=== PATIENT | female | born 1980 | race Caucasian/White ===

== ENCOUNTER 2017-07-03 08:05 | Day surgery (SDC) | payer OTHER ==
[2017-07-02 11:11] VITALS: BMI 38.4
--- NOTE | 2017-07-02 22:00 | HP ---
DATE OF ADMISSION: 07/03/2017 HISTORY OF PRESENT ILLNESS: This is a 36-year-old female referred to me for evaluation of chronic ac id reflux and also lower abdominal pain. The patient has history of chronic acid reflux for several years. The symptoms had been most recently. The patient complains of abdominal pain off and on. Th e pain is cramping in nature and across the lower abdomen. The symptoms have been chronic in nature. The patient has history of Crohn's disease in the family and her younger sister has Crohn's disease . The patient comes for EGD, because of chronic acid reflux and for colonoscopy because of intermitt ent abdominal pain. ALLERGIES: None. SOCIAL HISTORY: The patient does not smoke or drink alcohol. MEDICAL ILLNESSES: 1. Obesity. 2. Type 2 diabetes. 3. Hypothyroidism. 4. History of chronic acid reflux. PHYSICAL EXAMINATION: VITAL SIGNS: Pulse is 70, blood pressure 130/80. HEENT: Conjunctivae clear. CARDIOVASCULAR: First and second heart sounds normal. LUNGS: Clear to auscultation. ABDOMEN: Soft to palpate. Abdomen is tender across the lower abdomen. There is no rebound or guard ing. No organomegaly or masses. ADMITTING DIAGNOSES: 1. Chronic acid reflux. 2. Intermittent lower abdominal pain with family history of Crohn's disease. PLAN: EGD and colonoscopy.
--- NOTE | 2017-07-03 11:20 | OP ---
DATE OF PROCEDURE: 07/03/2017 SURGEON: Amena Wayne M.D. OPERATIVE PROCEDURE: Esophagogastroduodenoscopy with biopsy. PREOPERATIVE DIAGNOSES: A 36-year-old female with chronic acid reflux, undergoing esophagogastroduod enoscopy. POSTOPERATIVE DIAGNOSES: 1. Normal esophageal mucosa. 2. Gastritis of gastric body and antrum. 3. Normal duodenum. PROCEDURE IN DETAIL: The patient was placed on her left lateral position and was given sedation by A nesthesia Department. A Pentax video gastroscope under direct vision was passed into the oropharynx to the GE junction, into the stomach and subsequently into descending duodenum. The vocal cords appe ared healthy. Although the patient complains of chronic acid reflux, at endoscopy the mucosa appeare d completely normal. No esophagitis seen. The GE junction, no pathology seen. Retroflexion failed to show any lesions in the fundus, cardia. The gastric body and gastric antrum showed gastritis. Bi opsy of the gastric antrum and gastric body. The duodenal bulb, descending duodenum, no pathology. The stomach was decompressed and the scope removed. DISCHARGE PLANNING: A 36-year-old female who came for EGD and a colonoscopy with chronic acid reflux , abdominal pain. The EGD showed antral gastritis. The colonoscopy was completely normal. DISCHARGE RECOMMENDATIONS: 1. The patient to receive all the medicines as before. 2. The patient advised about dietary and lifestyle modifications for uncontrolled reflux. 3. The patient advised to lose some weight for control of reflux. 4. She is advised to call me if she develops abdominal pain or hematochezia. 5. In the absence of any of her symptoms I will see her back in my office in 3 weeks.
--- NOTE | 2017-07-03 12:34 | OP ---
DATE OF PROCEDURE: 07/03/2017 OPERATIVE PROCEDURE: Ileal colonoscopy. PREOPERATIVE DIAGNOSIS: A 36-year-old comes here with abdominal pain which has been chronic in nature. The pain is intermittent and across lower abdomen. The patient has family history of Crohn's disease. The patient underwent colonoscopy. POSTOPERATIVE DIAGNOSIS: Normal ileal colonoscopy. PROCEDURE IN DETAIL: The patient was placed on her left lateral position and given sedation by Anesthesia Department. A rectal exam was done before the scope was advanced into the rectum. No lesion felt on rectal exam. A Pentax video colonoscope was introduced into the rectum and advanced to the cecum. The mucosa appears normal throughout the colon with normal vascular pattern. The patient had some diffuse fecal coating the mucosa. Water was used to wash out. The underlying mucosa appears actually normal. The appendical opening, ileocecal valve, cecum, no pathology. The scope advanced to the ileum about 20 cm from the ileocecal valve. The ileal mucosa appeared normal. Withdrawal of scope in the ileum and the ascending colon, hepatic flexure, and transverse colon, no pathology seen. The splenic flexure, descending colon, sigmoid colon , and rectum no lesions seen. MTDD
== END 2017-07-03 11:40 | disposition home or self-care (01) ==
LOC: SDC 08:05
PROVIDERS: ATTEND Internal Medicine Gastroenterology
PROC: 0DB68ZX Excision of Stomach, Via Natural or Artificial Opening Endoscopic, Diagnostic (ICD-10-PCS; principal; 2017-07-03)
PROC: 0DJD8ZZ Inspection of Lower Intestinal Tract, Via Natural or Artificial Opening Endoscopic (ICD-10-PCS; principal; 2017-07-03)
DX: R10.30 Lower abdominal pain, unspecified (principal); K21.9 Gastro-esophageal reflux disease without esophagitis; K29.50 Unspecified chronic gastritis without bleeding; E66.9 Obesity, unspecified; E11.9 Type 2 diabetes mellitus without complications; E03.9 Hypothyroidism, unspecified; Z79.84 Long term (current) use of oral hypoglycemic drugs; Z79.3 Long term (current) use of hormonal contraceptives; Z79.899 Other long term (current) drug therapy; Z68.38 Body mass index [BMI] 38.0-38.9, adult; Z83.79 Family history of other diseases of the digestive system
CPT/HCPCS: 88305; 88312

== ENCOUNTER 2023-11-05 15:38 | Outpatient (CLI) | payer BC | END 2023-11-05 15:39 | disposition home or self-care (01) | LOC: BICMAMMO 15:38 | PROVIDERS: ATTEND Obstetrics & Gynecology | DX: Z12.31 Encounter for screening mammogram for malignant neoplasm of breast (principal) | CPT/HCPCS: 77063; 77067 ==

== ENCOUNTER 2024-12-09 14:06 | Outpatient (CLI) | payer BC | END 2024-12-09 14:07 | disposition home or self-care (01) | LOC: BICMAMMO 14:06 | PROVIDERS: ATTEND Obstetrics & Gynecology | DX: Z12.31 Encounter for screening mammogram for malignant neoplasm of breast (principal) | CPT/HCPCS: 77063; 77067 ==